=== PATIENT | female | born 1930 | race Hispanic/Latino ===

== ENCOUNTER 2017-07-01 21:33 | Observation (INO) | payer MEDICARE ==
[~2017-07-01] VITALS: Ht 162.6 cm; Wt 46.5 kg
[~2017-07-01 21:33] MED LIST: BENA20TA3 PO; IRON1TAB41 PO; SIMV20TA6 PO; TRAM50TA4 PO
[2017-07-01 22:33] LABS: HEMATOCRIT 29.2 % (36-48); LYMPHOCYTES % (AUTO) 2.8 % (21.0-51.0); MEAN CORPUSCULAR HEMOGLOBIN 29.7 pg (27.0-33.0); MEAN CORPUSCULAR HGB CONC 33.2 g/dL (32.0-36.0); MEAN CORPUSCULAR VOLUME 89.7 fL (79-99); MONOCYTES % (AUTO) 6.8 % (3.0-13.0); NEUTROPHILS % (AUTO) 89.4 % (40.0-77.0); PLATELET COUNT (AUTO) 298 K/uL (130-400); RED BLOOD CELL COUNT(AUTO) 3.26 MIL/uL (4.00-5.50); RED CELL DISTRIBUTION WIDTH 13.6 % (11.0-15.5); WHITE BLOOD COUNT (AUTO) 18.7 K/uL (4.8-10.8)
[2017-07-01 22:43] LABS: CARBON DIOXIDE 29 mmol/L (21-32); CHLORIDE 98 mmol/L (101-111); CREATININE 0.8 mg/dL (0.5-1.5); GLOMERULAR FILTR. RATE CALC 72 mL/min (>60); GLUCOSE,RANDOM 97 mg/dL (70-105); SODIUM SERUM 134 mmol/L (136-145); UREA NITROGEN, BLOOD 27 mg/dL (7-18)
[2017-07-01 22:46] LABS: INR 1.01 (0.85-1.15); PARTIAL THROMBOPLASTIN TIME 36.4 SEC (26.3-35.5); PROTHROMBIN TIME 10.6 SEC (9.6-11.6)
[2017-07-01] MEDS ORDERED: IBUPROFEN 800 MG TAB ONE (22:52)
[2017-07-01] MEDS ORDERED: MAG HYDROX/AL HYDROX/SIMETH ES 30 ML SUSP UDCUP ONE (22:52)
[2017-07-01 22:56] LABS: ALANINE AMINOTRANSFERASE 14 U/L (12-78); ALBUMIN 1.8 g/dL (3.5-5.0); ASPARTATE AMINOTRANSFERASE 11 U/L (10-37); BILIRUBIN,TOTAL 0.9 mg/dL (0.2-1.0); CREATINE KINASE MB < 0.5 ng/mL (0.5-3.6); CREATINE KINASE, TOTAL 24 U/L (21-232); TOTAL PROTEIN, SERUM 6.1 g/dL (6.0-8.3)
[2017-07-01 23:16] LABS: APPEARANCE,URINE Cloudy (CLEAR); BILIRUBIN,URINE Small (NEGATIVE); COLOR,URINE Dark Yellow (YELLOW); GLUCOSE, URINE (UA) Negative (NEGATIVE); KETONES,URINE Trace mg/dL (NEGATIVE); LEUKOCYTE ESTERASE ,URINE Moderate (NEGATIVE); NITRATE,URINE Positive (NEGATIVE); OCCULT BLOOD,URINE Negative (NEGATIVE); PROTEIN,URINE Trace (NEGATIVE)
[2017-07-01 23:22] LABS: AMORPHOUS SEDIMENT,UR Moderate /LPF (None Seen); BACTERIA,URINE Moderate /HPF (None Seen); MUCUS,URINE Moderate LPF (None Seen); RBC,URINE 0-1 /HPF (0-1); SQUAMOUS EPITHELIAL CELL,UR Few /LPF (0-2)
[2017-07-01] MEDS ORDERED: SODIUM CHLORIDE 0.9% 1000ML 1,000 ML IV ONE (23:31)
[2017-07-02 03:00] VITALS: BP 123/58
[2017-07-02] MEDS ORDERED: MORPHINE SULFATE 2 MG/ML 1ML SYG IVP PRN (03:00)
[2017-07-02] MEDS: LEVOFLOXACIN 500 MG/D5W 100 ML 100 ML IV SCH (03:45)
[2017-07-02 05:25] LABS: HEMATOCRIT 23.2 % (36-48); MEAN CORPUSCULAR HEMOGLOBIN 30.8 pg (27.0-33.0); MEAN CORPUSCULAR HGB CONC 33.9 g/dL (32.0-36.0); MEAN CORPUSCULAR VOLUME 90.9 fL (79-99); PLATELET COUNT (AUTO) 204 K/uL (130-400); RED BLOOD CELL COUNT(AUTO) 2.55 MIL/uL (4.00-5.50); RED CELL DISTRIBUTION WIDTH 13.7 % (11.0-15.5); WHITE BLOOD COUNT (AUTO) 14.2 K/uL (4.8-10.8)
[2017-07-02 05:49] LABS: CREATININE 0.7 mg/dL (0.5-1.5); POTASSIUM 3.4 mmol/L (3.5-5.1)
[2017-07-02] MEDS ORDERED: ONDANSETRON HCL 4 MG/2 ML VIAL IV PRN (06:15)
[2017-07-02] MEDS ORDERED: POTASSIUM CHLORIDE 10% ELIXIR 20 MEQ/15 ML UDCUP PO PRN (06:15)
[2017-07-02] MEDS ORDERED: HYDRALAZINE HCL 20 MG/ML VIAL IV PRN (06:15)
[2017-07-02] MEDS ORDERED: POTASSIUM CHLORIDE 20MEQ/100ML 100 ML IV PRN (06:15)
[2017-07-02] MEDS ORDERED: LIDOCAINE HCL-MPF 1% 2ML VIAL IVP PRN (06:15)
[2017-07-02] MEDS ORDERED: POTASSIUM CHLORIDE 20 MEQ ERTAB PO PRN (06:15)
[2017-07-02] MEDS ORDERED: MORPHINE SULFATE 2 MG/ML 1ML SYG IV PRN (06:15)
[2017-07-02] MEDS ORDERED: LEVOFLOXACIN 500 MG/D5W 100 ML 100 ML IV SCH (06:15)
[2017-07-02 08:00] VITALS: BP 114/52
[2017-07-02] MEDS: SODIUM CHLORIDE 0.9% 1000ML 1,000 ML IV SCH ×2 (08:26→20:58)
[2017-07-02] MEDS: FAMOTIDINE/PF 20 MG/2 ML VIAL IV SCH ×2 (08:28→20:58)
[2017-07-02] MEDS: METOPROLOL TARTRATE 25 MG TAB PO SCH ×2 (09:28→20:58)
[2017-07-02 11:00] VITALS: BP 103/48
[2017-07-02] MEDS ORDERED: POLY17PO3 PO (13:24)
[2017-07-02] MEDS ORDERED: OMEP1CAP24 PO (13:24)
[2017-07-02 16:00] VITALS: BP 116/54
[2017-07-02] MEDS: POLYETHYLENE GLYCOL 3350 17 GM POWD.PACK PO SCH (17:48)
[2017-07-02] MEDS: FE FUMARATE/FA/MV, MIN COMB#15 1 TAB PO SCH (17:48)
[2017-07-02 20:14] VITALS: BP 130/64
[2017-07-02] MEDS: ATORVASTATIN CALCIUM 10 MG TABLET PO SCH (20:58)
[2017-07-02] MEDS: BENAZEPRIL HCL 10 MG TABLET PO SCH (21:00)
[2017-07-03] VITALS (7 sets, daily range): BP systolic 120–154; BP diastolic 61–86
[2017-07-03] MEDS: LEVOFLOXACIN 500 MG/D5W 100 ML 100 ML IV SCH (03:59)
[2017-07-03] MEDS: PANTOPRAZOLE SODIUM 40 MG TABLET.DR PO SCH (06:35)
[2017-07-03] MEDS: BENAZEPRIL HCL 10 MG TABLET PO SCH ×2 (09:00→20:37)
[2017-07-03] MEDS: FE FUMARATE/FA/MV, MIN COMB#15 1 TAB PO SCH ×2 (09:00→17:57)
[2017-07-03] MEDS: FAMOTIDINE/PF 20 MG/2 ML VIAL IV SCH ×2 (09:00→20:37)
[2017-07-03] MEDS: POLYETHYLENE GLYCOL 3350 17 GM POWD.PACK PO SCH (09:04)
[2017-07-03] MEDS: METOPROLOL TARTRATE 25 MG TAB PO SCH ×2 (09:04→20:37)
[2017-07-03] MEDS: TRAMADOL HCL 50 MG TABLET PO PRN ×2 (10:12→17:57)
[2017-07-03] MEDS: ATORVASTATIN CALCIUM 10 MG TABLET PO SCH (20:37)
[2017-07-03] MEDS: SODIUM CHLORIDE 0.9% 1000ML 1,000 ML IV SCH (20:38)
[2017-07-03] MEDS ORDERED: ARIPIPRAZOLE 5 MG TABLET PO SCH (21:00)
[2017-07-04] MEDS: LEVOFLOXACIN 500 MG/D5W 100 ML 100 ML IV SCH (03:04)
[2017-07-04 04:00] VITALS: BP_SYST 124; BP_SYST 130; BP_DIAS 73; BP_DIAS 81
[2017-07-04 05:40] LABS: HEMATOCRIT 24.4 % (36-48); MEAN CORPUSCULAR HEMOGLOBIN 31.6 pg (27.0-33.0); MEAN CORPUSCULAR HGB CONC 35.1 g/dL (32.0-36.0); MEAN CORPUSCULAR VOLUME 89.8 fL (79-99); PLATELET COUNT (AUTO) 212 K/uL (130-400); RED BLOOD CELL COUNT(AUTO) 2.71 MIL/uL (4.00-5.50); RED CELL DISTRIBUTION WIDTH 13.7 % (11.0-15.5); WHITE BLOOD COUNT (AUTO) 11.3 K/uL (4.8-10.8)
[2017-07-04 05:43] LABS: CREATININE 0.6 mg/dL (0.5-1.5); POTASSIUM 3.6 mmol/L (3.5-5.1)
[2017-07-04 07:49] VITALS: BP 140/76
[2017-07-04] MEDS: TRAMADOL HCL 50 MG TABLET PO PRN (08:12)
[2017-07-04] MEDS: BENAZEPRIL HCL 10 MG TABLET PO SCH (08:13)
[2017-07-04] MEDS: METOPROLOL TARTRATE 25 MG TAB PO SCH (08:13)
[2017-07-04] MEDS: POLYETHYLENE GLYCOL 3350 17 GM POWD.PACK PO SCH (08:13)
[2017-07-04] MEDS: FAMOTIDINE/PF 20 MG/2 ML VIAL IV SCH (08:13)
[2017-07-04] MEDS: FE FUMARATE/FA/MV, MIN COMB#15 1 TAB PO SCH (08:13)
[2017-07-04] MEDS: PANTOPRAZOLE SODIUM 40 MG TABLET.DR PO SCH (08:13)
[2017-07-04] MEDS ORDERED: FLUOXETINE HCL 10 MG CAPSULE PO SCH (09:00)
[2017-07-04] MEDS ORDERED: LEVOFLOXACIN 500 MG/D5W 100 ML 100 ML IV SCH (11:00)
[2017-07-04 11:26] VITALS: BP 146/69
[2017-07-04 16:27] VITALS: BP 121/61
[2017-10-16] MEDS ORDERED: ONDA4TAB4 PO (13:47)
[2017-10-16] MEDS ORDERED: MIRT15TA PO (13:47)
[2017-10-16] MEDS ORDERED: ACET-66 PO (13:47)
[2017-10-16] MEDS ORDERED: TRAM50TA4 PO (13:47)
[2017-10-16] MEDS ORDERED: CYAN10007 IM (13:47)
[2017-10-16] MEDS ORDERED: PARO-66 PO (13:47)
[2017-10-16] MEDS ORDERED: APIX2.5T PO (13:47)
[2017-10-16] MEDS ORDERED: GUAIF10 PO (13:47)
[2017-10-16] MEDS ORDERED: MOM30 PO (13:47)
[2017-10-16] MEDS ORDERED: BISA10SU61 RC (13:47)
== END 2017-07-04 17:55 ==
LOC: EDH 21:33 → EDHIP 07-02 00:11 → 4AH 07-02 02:45
PROVIDERS: ADMIT Family Medicine; ATTEND Family Medicine
DX: S72.112A Displaced fracture of greater trochanter of left femur, initial encounter for closed fracture (principal); N39.0 Urinary tract infection, site not specified; D64.9 Anemia, unspecified; E44.1 Mild protein-calorie malnutrition; E78.5 Hyperlipidemia, unspecified; F32.9 Major depressive disorder, single episode, unspecified; I10 Essential (primary) hypertension; K56.609 Unspecified intestinal obstruction, unspecified as to partial versus complete obstruction; K29.70 Gastritis, unspecified, without bleeding; Z88.0 Allergy status to penicillin; Z79.899 Other long term (current) drug therapy; W01.0XXA Fall on same level from slipping, tripping and stumbling without subsequent striking against object, initial encounter; Y92.89 Other specified places as the place of occurrence of the external cause; Y93.89 Activity, other specified; Y99.8 Other external cause status
CPT/HCPCS: 36415 ×3; 71045; 73502; 73700; 80048 ×2; 80053; 81001; 82550; 82553; 84132; 84484; 85025; 85027 ×2; 85610; 85730; 87088; 87186; 93005; 96361 ×3; 96365; 96366 ×2; 96375; 96376 ×2; 97039 ×3; 97116; 97161; 99285; G0378 ×66; G8981; G8982; G8983; J1956 ×3; J3480; J3490 ×5; J7030 ×3

== ENCOUNTER → 2017-10-27 | Outpatient (CLI) | payer MEDICARE ==
[~2017-10-27] MED LIST changes: +ACET-66 PO; +APIX2.5T PO; -BENA20TA3 PO; +BISA10SU61 RC; +CYAN10007 IM; +GUAIF10 PO; -IRON1TAB41 PO; +MIRT15TA PO; +MOM30 PO; +ONDA4TAB4 PO; +PARO-66 PO; -SIMV20TA6 PO
== END | disposition home or self-care (01) ==
LOC: SHCH 15:41
PROVIDERS: ATTEND Internal Medicine Cardiovascular Disease
DX: I10 Essential (primary) hypertension (principal); I73.9 Peripheral vascular disease, unspecified
CPT/HCPCS: 93306

== ENCOUNTER 2019-04-14 09:12 | Inpatient (IN) | payer MEDICARE ==
[~2019-04-14] VITALS: Ht 162.6 cm; Wt 58.5 kg
[2019-04-14 09:24] LABS: BASOPHILS % (AUTO) 0.4 % (0.0-5.0); EOSINOPHILS % (AUTO) 0.1 % (0.0-8.0); HEMATOCRIT 37.5 % (36-48); MEAN CORPUSCULAR HEMOGLOBIN 31.2 pg (27.0-33.0); MEAN CORPUSCULAR HGB CONC 34.2 g/dL (32.0-36.0); MEAN CORPUSCULAR VOLUME 91.4 fL (79-99); MONOCYTES % (AUTO) 6.1 % (3.0-13.0); NEUTROPHILS % (AUTO) 81.4 % (40.0-77.0); WHITE BLOOD COUNT (AUTO) 16.7 K/uL (4.8-10.8)
[2019-04-14 09:47] LABS: PLATELET COUNT (AUTO) 704 K/uL (130-400)
[2019-04-14 09:56] LABS: ALBUMIN 2.6 g/dL (3.5-5.0); BILIRUBIN,TOTAL 0.5 mg/dL (0.2-1.0); CREATININE 1.3 mg/dL (0.5-1.5); POTASSIUM 5.2 mmol/L (3.5-5.1); TOTAL PROTEIN, SERUM 8.2 g/dL (6.0-8.3)
[2019-04-14 10:08] LABS: APPEARANCE,URINE CLOUDY (CLEAR); BILIRUBIN,URINE SMALL (NEGATIVE); COLOR,URINE YELLOW (YELLOW); GLUCOSE, URINE (UA) NEGATIVE (NEGATIVE); KETONES,URINE NEGATIVE (NEGATIVE); LEUKOCYTE ESTERASE ,URINE NEGATIVE (NEGATIVE); NITRATE,URINE NEGATIVE (NEGATIVE); OCCULT BLOOD,URINE MODERATE (NEGATIVE); PROTEIN,URINE TRACE mg/dL (NEGATIVE); UROBILINOGEN,URINE 0.2 mg/dL (0.2-1.0)
[2019-04-14 10:16] LABS: BACTERIA,URINE Few /HPF (None Seen)
[2019-04-14 10:17] LABS: SQUAMOUS EPITHELIAL CELL,UR Moderate /HPF (0-2)
[2019-04-14] MEDS ORDERED: SODIUM CHLORIDE 0.9% 1000ML 1,000 ML IV ONE ×2 (10:28→14:15)
[2019-04-14] MEDS: SODIUM CHLORIDE 0.9% 1000ML 1,000 ML IV SCH (12:17)
[2019-04-14] MEDS ORDERED: MORPHINE SULFATE 2 MG/ML 1ML SYG IVP PRN (12:30)
[2019-04-14] MEDS ORDERED: MORPHINE SULFATE 4 MG/1ML SYG IV PRN (12:30)
[2019-04-14 15:21] VITALS: BP 123/59
[2019-04-14 16:00] VITALS: BP 116/64
[2019-04-14] MEDS: METOCLOPRAMIDE 10 MG/2 ML VIAL IVP SCH ×2 (16:30→22:00)
[2019-04-14 20:00] VITALS: BP 130/63
[2019-04-14] MEDS: FAMOTIDINE/PF 20 MG/2 ML VIAL IV SCH (22:00)
[2019-04-14 23:44] VITALS: BP 135/90
[2019-04-15 04:00] VITALS: BP 137/72
[2019-04-15 05:51] LABS: BASOPHILS % (AUTO) 0.5 % (0.0-5.0); EOSINOPHILS % (AUTO) 3.5 % (0.0-8.0); HEMATOCRIT 32.7 % (36-48); MEAN CORPUSCULAR HEMOGLOBIN 31.3 pg (27.0-33.0); MEAN CORPUSCULAR HGB CONC 33.8 g/dL (32.0-36.0); MEAN CORPUSCULAR VOLUME 92.8 fL (79-99); MONOCYTES % (AUTO) 10.8 % (3.0-13.0); NEUTROPHILS % (AUTO) 63.2 % (40.0-77.0); NUCLEATED RED BLOOD CELLS 0.1 % (0.0-0.19); PLATELET COUNT (AUTO) 520 K/uL (130-400); RED BLOOD CELL COUNT(AUTO) 3.53 MIL/uL (4.00-5.50); RED CELL DISTRIBUTION WIDTH 12.9 % (11.0-15.5); WHITE BLOOD COUNT (AUTO) 7.9 K/uL (4.8-10.8)
[2019-04-15 06:00] LABS: CREATININE 0.9 mg/dL (0.5-1.5); POTASSIUM 3.8 mmol/L (3.5-5.1)
[2019-04-15 08:05] VITALS: BP 153/69
[2019-04-15] MEDS: SODIUM CHLORIDE 0.9% 1000ML 1,000 ML IV SCH ×4 (08:11→21:55)
[2019-04-15] MEDS: METOCLOPRAMIDE 10 MG/2 ML VIAL IVP SCH ×4 (08:11→21:54)
[2019-04-15] MEDS: FAMOTIDINE/PF 20 MG/2 ML VIAL IV SCH ×2 (10:40→21:54)
[2019-04-15] MEDS: ENOXAPARIN SODIUM 40 MG/0.4 ML SYRINGE SQ SCH (10:41)
[2019-04-15 12:00] VITALS: BP 148/74
[2019-04-15 16:00] VITALS: BP 155/64
--- NOTE | 2019-04-15 16:00 | NUR ---
INITIAL MET W PT & SON AT BEDSIDE- PT LIVES IN [place]- HAS APHASIA, TOTAL CARE DEPENDENT, SECOND BOUT OF SBO, EXPECTED TO DC BACK TO SAME SETTING.
[2019-04-15 19:00] VITALS: BP 142/91
[2019-04-15] MEDS: HYDRALAZINE HCL 20 MG/ML VIAL IV PRN (23:49)
[2019-04-16] VITALS: BP 183/74
[2019-04-16 04:00] VITALS: BP 180/96
[2019-04-16 06:09] LABS: BASOPHILS % (AUTO) 0.6 % (0.0-5.0); EOSINOPHILS % (AUTO) 2.2 % (0.0-8.0); HEMATOCRIT 31.8 % (36-48); LYMPHOCYTES % (AUTO) 19.7 % (21.0-51.0); MEAN CORPUSCULAR VOLUME 93.7 fL (79-99); MONOCYTES % (AUTO) 10.7 % (3.0-13.0); NEUTROPHILS % (AUTO) 66.8 % (40.0-77.0); PLATELET COUNT (AUTO) 480 K/uL (130-400); RED BLOOD CELL COUNT(AUTO) 3.39 MIL/uL (4.00-5.50); RED CELL DISTRIBUTION WIDTH 13.2 % (11.0-15.5); WHITE BLOOD COUNT (AUTO) 8.6 K/uL (4.8-10.8)
[2019-04-16 06:36] LABS: CREATININE 0.8 mg/dL (0.5-1.5); POTASSIUM 3.7 mmol/L (3.5-5.1)
[2019-04-16] MEDS: METOCLOPRAMIDE 10 MG/2 ML VIAL IVP SCH ×4 (06:44→19:47)
[2019-04-16 08:00] VITALS: BP 148/66
[2019-04-16] MEDS: SODIUM CHLORIDE 0.9% 1000ML 1,000 ML IV SCH (08:00)
[2019-04-16] MEDS: ENOXAPARIN SODIUM 40 MG/0.4 ML SYRINGE SQ SCH (10:18)
[2019-04-16] MEDS: FAMOTIDINE/PF 20 MG/2 ML VIAL IV SCH ×2 (10:18→19:47)
[2019-04-16 11:56] VITALS: BP 167/72
[2019-04-16] MEDS: LEVOFLOXACIN 500 MG/D5W 100 ML 100 ML IV SCH (14:11)
[2019-04-16] MEDS: HYDRALAZINE HCL 20 MG/ML VIAL IV PRN (14:17)
[2019-04-16 16:00] VITALS: BP 134/63
[2019-04-16 19:00] VITALS: BP 185/77
[2019-04-16] MEDS ORDERED: MAGNESIUM CITRATE 296 ML SOLUTION PO SCH (19:45)
[2019-04-17] VITALS: BP 172/87
[2019-04-17] MEDS: HYDRALAZINE HCL 20 MG/ML VIAL IV PRN (00:16)
[2019-04-17] MEDS: SODIUM CHLORIDE 0.9% 1000ML 1,000 ML IV SCH ×2 (02:02→10:17)
[2019-04-17 04:00] VITALS: BP 164/70
[2019-04-17 05:18] LABS: BASOPHILS % (AUTO) 0.5 % (0.0-5.0); EOSINOPHILS % (AUTO) 2.4 % (0.0-8.0); HEMATOCRIT 32.8 % (36-48); LYMPHOCYTES % (AUTO) 17.1 % (21.0-51.0); MEAN CORPUSCULAR HEMOGLOBIN 31.4 pg (27.0-33.0); MEAN CORPUSCULAR HGB CONC 33.8 g/dL (32.0-36.0); MEAN CORPUSCULAR VOLUME 92.9 fL (79-99); MONOCYTES % (AUTO) 9.3 % (3.0-13.0); NEUTROPHILS % (AUTO) 70.7 % (40.0-77.0); PLATELET COUNT (AUTO) 465 K/uL (130-400); RED BLOOD CELL COUNT(AUTO) 3.53 MIL/uL (4.00-5.50); WHITE BLOOD COUNT (AUTO) 8.8 K/uL (4.8-10.8)
[2019-04-17 05:31] LABS: CREATININE 0.6 mg/dL (0.5-1.5); POTASSIUM 3.7 mmol/L (3.5-5.1)
[2019-04-17] MEDS: METOCLOPRAMIDE 10 MG/2 ML VIAL IVP SCH ×3 (06:47→16:32)
--- NOTE | 2019-04-17 08:00 | NUR ---
note AAOX3. DENIES PAIN OR DISCOMFORT ONLY FROM HAVING NGT FOR TOO MANY DAYS. ALSO COMPLAINS OF COUGH AND PHLEGM BUT APPEARS TO BE WHEN DRINKS THE LIQUID DIET BECAUSE SHE STILL HAS NGT. SHE TOLERATED CLEAR LIQUIDS WITH NGT IN PLACE. NO ABDOMINAL DISCOMFORT VOICED NO N/V.
[2019-04-17 08:11] VITALS: BP 167/84
[2019-04-17] MEDS: FAMOTIDINE/PF 20 MG/2 ML VIAL IV SCH (10:04)
[2019-04-17 11:18] VITALS: BP 167/93
--- NOTE | 2019-04-17 13:06 | NUR ---
NOTE NGT DC'D PER 'S ORDERS. WILL START HER ON SOFT DIET AND SEE IF SHE TOLERATES. FROM SURGERY STANDPOINT SHE IS OKAY TO DC IF SHE TOLERATES DIET.
[2019-04-17] MEDS ORDERED: LEVO250T59 PO (14:05)
[2019-04-17] MEDS: LEVOFLOXACIN 500 MG/D5W 100 ML 100 ML IV SCH (14:34)
--- NOTE | 2019-04-17 15:44 | NUR ---
INITIAL MET W PT & SON AT BEDSIDE- PT LIVES IN [place]- HAS APHASIA, TOTAL CARE DEPENDENT, SECOND BOUT OF SBO, EXPECTED TO DC BACK TO SAME SETTING.
[2019-04-17 16:14] VITALS: BP 167/79
--- NOTE | 2019-04-17 17:36 | NUR ---
SETTING UP EMS TRANSPORT
--- NOTE | 2019-04-17 19:00 | NUR ---
NOTE DISCHARGE INSTRUCTIONS GIVEN TO PATIENT AND WENT OVER WITH HER SON WHEN HE SHOWED UP NOW TO OPEN THE PATIENT'S RESIDENCE UPON ARRIVAL OF EMS. EMS HERE TO TRANSPORT. PATIENT STABLE. C/O SORE THROAT FROM HAVING NGT FOR SO MANY DAYS AND HER VOICE SOUNDS A LITTLE HOARSE. VS STABLE. NO OTHER PROBLEMS VOICED OR NOTED. LEFT VIA STRETCHER.
== END 2019-04-17 19:00 | DRG 389 ==
LOC: EDH 09:12 → EDHIP 12:17 → 4CH 14:55
PROVIDERS: ADMIT Internal Medicine; ATTEND Internal Medicine
PROC: 0D9670Z Drainage of Stomach with Drainage Device, Via Natural or Artificial Opening (ICD-10-PCS; principal; 2019-04-14)
DX: K56.600 Partial intestinal obstruction, unspecified as to cause (principal); N39.0 Urinary tract infection, site not specified; E78.5 Hyperlipidemia, unspecified; I10 Essential (primary) hypertension; Z88.0 Allergy status to penicillin; Z82.49 Family history of ischemic heart disease and other diseases of the circulatory system; Z88.8 Allergy status to other drugs, medicaments and biological substances
CPT/HCPCS: 36415; 74018; 74176; 76705; 80048; 80053; 81001; 82150; 83690; 84145; 85025; 93005; G0378; J0360; J1650; J1956; J2765; J3490; J7030